=== PATIENT | male | born 1965 | race American Indian/Alaskan Native ===

== ENCOUNTER 2017-04-01 20:45 | Emergency (ER) | payer SELFPAY ==
[2017-04-01 21:22] VITALS: BP 119/90
[2017-04-01] MEDS ORDERED: NACL 0.9% IR ONE (21:51)
[2017-04-01] MEDS ORDERED: NACL 0.9% 500 ML IR ONE (21:52)
--- NOTE | 2017-04-01 22:53 | Emergency Department Report ---
ED Laceration HPI - HPI Chief Complaint: Wound/Laceration Stated Complaint: LACERATION TO LT LEG Time Seen by Provider: 04/01/17 22:06 Occurred When: Today Location: Lower Extremity (left anteriro bowie region) Severity: mild Tetanus Status: Up to Date (recieved 2016) Laceration Symptoms: Yes Pain, No Foreign Body Sensation, No Numbness, No Weakness Other History: 52-year-old male past medical history alcohol use presents with complaint of laceration to left anterior bowie. Patient states this afternoon he was helping a family friend move furniture, states that while lifting a couch it slipped out of his hand and the bottom wooden frame of couch scraped his anterior bowie. Patient has visible laceration to anterior bowie denies any other injuries. States he received a tetanus update in 2016. Patient is awake alert and oriented 3 does not appear to be in acute distress denies any other injuries. Patient is fully lucid conversant and cooperative. ED Review of Systems ROS: Stated complaint: LACERATION TO LT LEG Other details as noted in HPI Constitutional: denies: chills, fever Eyes: denies: eye pain, eye discharge, vision change ENT: denies: ear pain, throat pain Respiratory: denies: cough, shortness of breath, wheezing Cardiovascular: denies: chest pain, palpitations Endocrine: no symptoms reported Gastrointestinal: denies: abdominal pain, nausea, diarrhea Genitourinary: denies: urgency, dysuria Musculoskeletal: denies: back pain, joint swelling, arthralgia Skin: denies: rash, lesions Neurological: denies: headache, weakness, paresthesias Psychiatric: denies: anxiety, depression Hematological/Lymphatic: denies: easy bleeding, easy bruising ED Past Medical Hx - Past Medical History Previous Medical History?: No Additional medical history: denies any PMH - Surgical History Past Surgical History?: Yes Additional Surgical History: abd wall sx-for ulcers 1993 - Social History Smoking Status: Current Every Day Smoker Substance Use Type: Alcohol - Medications Home Medications: Home Medications Medication Instructions Recorded Confirmed Last Taken Type Acetaminophen [Acetaminophen TAB] 500 mg PO BID #14 tablet 04/01/17 Unknown Rx Sulfamethoxazole/Trimethoprim 1 each PO BID #14 tablet 04/01/17 Unknown Rx [Bactrim DS TAB] Laceration Physical Exam - Exam General: Vital signs noted. No distress. Alert and acting appropriately. Wound Length (cm): 2 Laceration Location: Lower Extremity (left anterior bowie) Full Body Front + Back: 1 - 2cm diagonal laceration here, minimal bleeding Laceration Exam: Yes Normal Distal CMS (distal DP and PT pulses strong), No Foreign Body, No Exposed Tendon, Vessel, or Nerve, No Tendon Injury ED Course Vital Signs 04/01/17 21:12 Temperature 97.6 F Pulse Rate 79 Respiratory 18 Rate Blood Pressure 119/90 O2 Sat by Pulse 100 Oximetry - Laceration /Wound Repair Left Anterior Leg Wound Location: lower extremity (left anterior bowie region) Wound Length (cm): 3 Wound's Depth, Shape: superficial Irrigated w/ Saline (ccs): 500 Anesthesia: Lidocaine w/ Epi Volume Anesthetic (ccs): 3 Wound Debrided: minimal Wound Repaired With: sutures Suture Size/Type: 3:0, nylon Number of Sutures: 4 Layer Closure?: No Sterile Dressing Applied?: Yes (triple antibiotic ointment with sterile gauze overlying then wrapped with K) Progress: Procedure tolerated well minimal bleeding. Good closure achieved ED Medical Decision Making - Medical Decision Making A/P: anterior LLE Laceration 1-good closure achieved w/ 4 sutures. sutures to be removed in 10-14 days 2-tetanus up to date 2015 3-tylenol PRN, short course bactrim, triple antibiotic ointment 4- ptadvised to return to the ED for any fevers chills pus drainage erythema at site of laceration Critical care attestation.: If time is entered above; I have spent that time in minutes in the direct care of this critically ill patient, excluding procedure time. ED Disposition Clinical Impression: Laceration of lower leg, left Qualifiers: Encounter type: initial encounter Qualified Code(s): S81.812A - Laceration without foreign body, left lower leg, initial encounter Disposition: TO HOME OR SELFCARE Is pt being admited?: No Does the pt Need Aspirin: No Condition: Stable Instructions: Suture Care (ED), Laceration (ED) Additional Instructions: Sutures need to be removed in 10-14 days Prescriptions: Acetaminophen [Acetaminophen TAB] 500 mg PO BID #14 tablet Sulfamethoxazole/Trimethoprim [Bactrim DS TAB] 1 each PO BID #14 tablet Referrals: [facility] [Provider Group] - 3-5 Days Time of Disposition: 22:52
== END 2017-04-01 22:49 | disposition home or self-care (01) ==
LOC: ED 20:45
DX: S81.812A Laceration without foreign body, left lower leg, initial encounter (principal); F17.200 Nicotine dependence, unspecified, uncomplicated; X58.XXXA Exposure to other specified factors, initial encounter; Y93.9 Activity, unspecified; Y92.9 Unspecified place or not applicable; Y99.9 Unspecified external cause status
CPT/HCPCS: 99281